=== PATIENT | female | born 1980 | race Caucasian/White ===

== ENCOUNTER → 2016-09-30 | Outpatient (CLI) | payer BC | LOC: COL.VAS 13:56 | DX: I83.93 Asymptomatic varicose veins of bilateral lower extremities (principal) ==

== ENCOUNTER → 2016-10-04 | Outpatient (CLI) | payer BC | LOC: COL.VAS 08:45 | DX: I83.812 Varicose veins of left lower extremity with pain (principal); I87.2 Venous insufficiency (chronic) (peripheral); I83.892 Varicose veins of left lower extremity with other complications ==

== ENCOUNTER → 2018-07-12 | Outpatient (CLI) | payer BC | LOC: COL.VAS 13:00 | DX: Z13.6 Encounter for screening for cardiovascular disorders (principal); M79.661 Pain in right lower leg ==

== ENCOUNTER → 2018-08-29 | Outpatient (CLI) | payer BC | LOC: MC.RAD 11:17 | DX: Z12.31 Encounter for screening mammogram for malignant neoplasm of breast (principal) ==

== ENCOUNTER → 2021-06-23 | Outpatient (CLI) | payer BC | LOC: MC.RAD 08:26 | DX: Z12.31 Encounter for screening mammogram for malignant neoplasm of breast (principal) ==

== ENCOUNTER → 2023-10-24 | Outpatient (CLI) | payer BC | LOC: MC.RAD 16:50 | DX: Z12.31 Encounter for screening mammogram for malignant neoplasm of breast (principal) ==